=== PATIENT | female | born 1965 | race Caucasian/White ===

== ENCOUNTER 2018-05-13 10:09 | Outpatient (CLI) | payer OTHER | END 2018-05-13 10:10 | disposition home or self-care (01) | LOC: BICMAMMO 10:09 | PROVIDERS: ATTEND Obstetrics & Gynecology | DX: Z12.31 Encounter for screening mammogram for malignant neoplasm of breast (principal); Z80.3 Family history of malignant neoplasm of breast; Z80.41 Family history of malignant neoplasm of ovary | CPT/HCPCS: 77063; 77067 ==

== ENCOUNTER 2019-05-31 08:16 | Outpatient (CLI) | payer OTHER ==
--- NOTE | 2019-05-31 09:01 | MMO ---
Right Breast MAMMO Unilat Diag [facility]ANK. CLINICAL HISTORY: Patient is 54 years old and is seen for diagnostic exam. The patient has the following family history of breast cancer: maternal aunt, OVARIAN. The patient has no personal history of cancer. VIEWS: The views performed were: right mediolateral oblique spot compression with tomosynthesis and right mediolateral with tomosynthesis. FILMS COMPARED: The present examination has been compared to prior imaging studies performed at [facility] on 05/18/2019, and at [facility] on 02/24/2016, 04/05/2017 and 05/13/2018. This study has been interpreted with the assistance of computer-aided detection. MAMMOGRAM FINDINGS: The breast is heterogeneously dense, which could obscure a lesion on mammography. Finding 1: There is a stable oval mass with associated calcifications seen in the central region of the right breast. Finding 2: The asymmetries seen at screening mammography do not persist at additional imaging, compatible with superimposed tissue. There are no suspicious masses, suspicious calcifications, or new areas of architectural distortion. IMPRESSION: THERE IS NO MAMMOGRAPHIC EVIDENCE OF MALIGNANCY. A ROUTINE FOLLOW-UP MAMMOGRAM IN 1 YEAR IS RECOMMENDED. THE RESULTS OF THIS EXAM WERE SENT TO THE PATIENT. ACR BI-RADS Category 2 - Benign finding MAMMOGRAPHY NOTE: 1. A negative mammogram report should not delay a biopsy if a dominant of clinically suspicious mass is present. 2. Approximately 10% to 15% of breast cancers are not detected by mammography. 3. Adenosis and dense breasts may obscure an underlying neoplasm. Reported by: ROBIN SANTOS MD Electonically Signed: [id number]
== END 2019-05-31 08:17 | disposition home or self-care (01) ==
LOC: BICMAMMO 08:16
PROVIDERS: ATTEND Obstetrics & Gynecology
DX: N63.10 Unspecified lump in the right breast, unspecified quadrant (principal)
CPT/HCPCS: G0279

== ENCOUNTER 2020-03-06 13:14 | Outpatient (CLI) | payer OTHER ==
--- NOTE | 2020-03-06 14:21 | MRI ---
Exam: MRI cervical spine without contrast HISTORY: Cervical radiculopathy. Previous cervical fusion. Neck pain x1 month.. COMPARISON: 11/19/2011 Correlation: Cervical spine radiograph series 03/06/2020 FINDINGS: Metallic susceptibility artifact secondary to cervical fusion changes at C4, C5 and C7, T1. Remainder the cervical vertebra demonstrate appropriate T1 marrow signal intensity. No significant STIR hyperintensity to suggest vertebral body edema or ligamentous injury. There is straightening of cervi matt lordosis, likely due to fusion. Spondylolisthesis: There is evidence of grade 1 anterolisthesis of C4 upon C5 which is best demonstra kwan on cervical spine radiograph series report. There is an anterior fusion plate with transvertebral body screw at C4 and C5 and C7-T1. There is a C4-C5 and C7-T1 disc prosthesis. C2-C3: No significant central canal stenosis. Patent bilateral neural foramina C3-C4: Desiccation with mild loss of disc space height. There is a central/left paracentral disc faraz iation which is superimposed upon a broad-based discussed by complex. Moderate central canal stenosis. Moderate right and the left foraminal narrowing due to uncovertebral hypertrophy C4-C5: Broad-based osteophyte ridge. Mild central canal stenosis. Patent bilateral neural foramina C5-C6: Desiccation with severe loss of disc space height. Broad-based discussed by complex abuts the thecal sac. Subarachnoid space is nearly effaced. Mild to moderate central canal stenosis. Moderate bilateral neural foraminal narrowing due to uncovertebral hypertrophy C6-C7: Broad-based discussed by complex abuts the thecal sac. Subarachnoid space is nearly effaced. M ild to moderate central canal stenosis. Moderate right and mild to moderate left neural foraminal narrowing due to uncovertebral hypertrophy C7-T1: Broad-based osteophyte ridge abuts the thecal sac. Mild central canal stenosis. Mild right concepcion ral foraminal narrowing. Patent left neural foramen. IMPRESSION: 1. Straightening of cervical lordosis, likely due to fusion 2. Cervical fusion at C4-C5 and C7-T1 3. Varying degrees of central canal stenosis and neural foraminal narrowing as detailed above. Transcribed Date/Time: 03/06/2020 2:37 PM
--- NOTE | 2020-03-06 14:24 | RAD ---
EXAM: XR Cervical Spine 4 View Min PROVIDED CLINICAL HISTORY: Cervical radicular pain. Patient has been complaining of neck pain for one month. Tingling right shou lder to right hand. COMPARISON: None FINDINGS: C1 to the cervicothoracic junction is seen on the lateral view. Postoperative changes related to ante rior cervical fusion with anterior plate and screws are seen transfixing the C4-5 and C7-T1 levels. Intradiscal prostheses are present at these levels. There is questionable fracture of the lower right screw in the T1 vertebral body. Otherwise no hardware complication seen. There is narrowing of the C5-6 and C6-7 intervertebral disc spaces with osteophyte formation at these levels. Scattered facet degenerative changes are present. No fracture or subluxation is seen. No abnormal translational motion is seen between the flexion-extension views cervical spine. Prevertebra l soft tissues have a normal appearance. IMPRESSION: Postoperative and degenerative changes of the cervical spine. There is questionable fracture involvin g the right anterior screw in the T1 vertebral body.
== END 2020-03-06 13:15 | disposition home or self-care (01) ==
LOC: BICMRI 13:14
PROVIDERS: ATTEND Nurse Practitioner Family
DX: M47.22 Other spondylosis with radiculopathy, cervical region (principal); M40.50 Lordosis, unspecified, site unspecified; M48.03 Spinal stenosis, cervicothoracic region; M48.02 Spinal stenosis, cervical region; Z98.1 Arthrodesis status
CPT/HCPCS: 72050; 72141

== ENCOUNTER 2020-04-05 07:00 | Day surgery (SDC) | payer OTHER ==
[2020-04-04 10:49] VITALS: BMI 18.0
[~2020-04-05 07:00] MED LIST: FLU VACC QS2020-21(6MOS UP)/PF 60 MCG/0.5 ML SYRINGE IM ONE
[2020-04-05 07:52] VITALS: BP 122/59; TEMP 98.6
--- NOTE | 2020-04-05 09:24 | RAD ---
Exam: Cervical myelogram HISTORY: Cervical fusion. Cervical radiculopathy. EXPOSURE: 0.4 minutes, 88.5 microgray/M2. 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 Vertebral body heights are maintain ed. No fractures or malalignment. Preserved disc space heights. Cervical spine 2 views: No prevertebral soft tissue swelling. Predental space is normal. Anterior fus ion changes at C4 and C5 as well as C7-T1. No perihardware lucency. C4-C5 and C7-T1 disc prosthesis. Moderate degenerative disc disease at C5-C6 and C6-C7. On the AP projection, there is mil d facet arthropathy. Successful lumbar puncture. A total of 9 mL of Isovue-M 300 contrast was administered intrathecally. No immediate or postprocedure complications. TECHNIQUE: Consent obtained to perform a lumbar puncture for a cervical myelogram. The L2-L3 level was deemed ap propriate. Skin was prepped and draped in sterile fashion. 1% lidocaine, buffered with sodium bicarbonate was used for local anesthesia. Under fluoroscopic guidance, 22-gauge spinal needle was ad vanced into the CSF space. Prompt flow of clear CSF to the hub of the needle. Via a short tubing catheter, total of 9 mL of Isovue-M 300 contrast was administered intrathecally. Patient tolerated th e procedure well. No immediate or postprocedural complications. IMPRESSION: Successful lumbar puncture for cervical myelogram. Transcribed Date/Time: 04/05/2020 9:52 AM
--- NOTE | 2020-04-05 09:50 | CT ---
Exam: Post myelogram cervical spine CT HISTORY:Cervical radiculopathy. Cervical fusion. COMPARISON: None FINDINGS: Anterior fusion plate with transvertebral body screw at C4, C5, C7, and T1. There is no perihardware lucency. There is a C4-C5 and C7-T1 disc prosthesis. Straightening of cervical lordosis is presumed to be due to fusion changes. There is multilevel facet arthropathy. Intact odontoid process. Lateral masses of C1 and C2 articulat e appropriately. No prevertebral soft tissue swelling. Upper mediastinum and lung apices do not demonstrate any acute abnormality Cervical spine vertebral body heights are maintained. No fracture. Spondylolisthesis: 1.8 mm of anterolisthesis of C2 upon C3. 1.6 mm of anterolisthesis of C4 upon C5. C2-C3: No significant central canal stenosis. Moderate right facet hypertrophy. Patent bilateral neur al foramina. C3-C4: Moderate loss of disc space height. Broad-based disc osteophyte complex. Mild central canal st enosis. Mild right facet hypertrophy. Mild to moderate right and mild left neural foraminal narrowing. C4-C5:Disc prosthesis. No significant central canal stenosis. Mild bilateral foraminal narrowing due to uncovertebral hypertrophy. C5-C6: Severe loss of disc space height. Broad-based disc osteophyte complex. There is contact upon t he ventral cord. Mild central canal stenosis. Mild bilateral neural foraminal narrowing. C6-C7:Broad-based disc osteophyte complex abuts the thecal sac. Mild central canal stenosis. Moderate bilateral neural foraminal narrowing. C7-T1: Disc prosthesis. No significant central canal stenosis. Patent bilateral neural foramina. IMPRESSION: 1.Cervical fusion changes as described above. 2. Varying degrees of central canal stenosis and neural foraminal narrowing as detailed above. Transcribed Date/Time: 04/05/2020 9:55 AM
== END 2020-04-05 09:50 | disposition home or self-care (01) ==
LOC: RAD 07:00
PROVIDERS: ATTEND Neurological Surgery
PROC: B02B1ZZ Computerized Tomography (CT Scan) of Spinal Cord using Low Osmolar Contrast (ICD-10-PCS; principal; 2020-04-05)
DX: M50.122 Cervical disc disorder at C5-C6 level with radiculopathy (principal); M85.859 Other specified disorders of bone density and structure, unspecified thigh; F41.9 Anxiety disorder, unspecified; Z88.1 Allergy status to other antibiotic agents; Z79.899 Other long term (current) drug therapy
CPT/HCPCS: 62302; 72126

== ENCOUNTER 2020-04-09 09:46 | Emergency (ER) | payer OTHER | END 2020-04-09 13:22 | disposition home or self-care (01) | LOC: ERS 09:46 | DX: G97.1 Other reaction to spinal and lumbar puncture (principal); R51.0 Headache with orthostatic component, not elsewhere classified; F41.9 Anxiety disorder, unspecified; Z79.899 Other long term (current) drug therapy | CPT/HCPCS: 99283 ==

== ENCOUNTER 2020-07-07 19:00 | Outpatient (CLI) | payer OTHER | END 2020-07-07 19:01 | disposition home or self-care (01) | LOC: SLEEPLAB 19:00 | PROVIDERS: ATTEND Internal Medicine Cardiovascular Disease | DX: G47.33 Obstructive sleep apnea (adult) (pediatric) (principal); R53.83 Other fatigue; F41.9 Anxiety disorder, unspecified | CPT/HCPCS: 95810 ==

== ENCOUNTER 2020-07-12 15:58 | Outpatient (CLI) | payer OTHER ==
--- NOTE | 2020-07-12 16:21 | MMO ---
Bilateral MAMMO Bilat Screen [facility]. CLINICAL HISTORY: Patient is 55 years old and is seen for screening. The patient has the following family history of breast cancer: maternal aunt, OVARIAN. The patient has no personal history of cancer. VIEWS: The views performed were: bilateral craniocaudal with tomosynthesis and bilateral mediolateral oblique with tomosynthesis. FILMS COMPARED: The present examination has been compared to prior imaging studies performed at [facility] on 05/18/2019, and at [facility] on 04/05/2017, 05/13/2018 and 05/31/2019. This study has been interpreted with the assistance of computer-aided detection. MAMMOGRAM FINDINGS: There are scattered fibroglandular densities. Finding 1: There are stable benign appearing calcifications seen in the right breast. Finding 2: The asymmetries seen at screening mammography do not persist at additional imaging, compatible with superimposed tissue. There are no suspicious masses, suspicious calcifications, or new areas of architectural distortion. IMPRESSION: THERE IS NO MAMMOGRAPHIC EVIDENCE OF MALIGNANCY. A ROUTINE FOLLOW-UP MAMMOGRAM IN 1 YEAR IS RECOMMENDED. THE RESULTS OF THIS EXAM WERE SENT TO THE PATIENT. ACR BI-RADS Category 2 - Benign finding MAMMOGRAPHY NOTE: 1. A negative mammogram report should not delay a biopsy if a dominant of clinically suspicious mass is present. 2. Approximately 10% to 15% of breast cancers are not detected by mammography. 3. Adenosis and dense breasts may obscure an underlying neoplasm. Reported by: DOTTIE BECERRA MD Electonically Signed: [id number]
== END 2020-07-12 15:59 | disposition home or self-care (01) ==
LOC: BICMAMMO 15:58
PROVIDERS: ATTEND Obstetrics & Gynecology
DX: Z12.31 Encounter for screening mammogram for malignant neoplasm of breast (principal); Z80.3 Family history of malignant neoplasm of breast
CPT/HCPCS: 77063; 77067

== ENCOUNTER 2021-06-06 07:58 | Outpatient (CLI) | payer BC | END 2021-06-06 07:59 | disposition home or self-care (01) | LOC: BICMAMMO 07:58 | PROVIDERS: ATTEND Advanced Practice Midwife | DX: Z13.820 Encounter for screening for osteoporosis (principal); M85.851 Other specified disorders of bone density and structure, right thigh; M85.852 Other specified disorders of bone density and structure, left thigh | CPT/HCPCS: 77080 ==

== ENCOUNTER 2022-08-07 08:09 | Outpatient (CLI) | payer BC | END 2022-08-07 08:10 | disposition home or self-care (01) | LOC: BICMAMMO 08:09 | PROVIDERS: ATTEND Obstetrics & Gynecology | DX: Z12.31 Encounter for screening mammogram for malignant neoplasm of breast (principal); Z80.3 Family history of malignant neoplasm of breast | CPT/HCPCS: 77063; 77067 ==